=== PATIENT | female | born 1945 | race Caucasian/White ===

== ENCOUNTER 2019-10-16 07:53 | Day surgery (SDC) | payer OTHER, BC ==
[2019-10-11 11:44] VITALS: BMI 23.0
[2019-10-16] MEDS ORDERED: LIDOCAINE HCL 2% (50ML VIAL) INF ONE (08:13)
[2019-10-16] MEDS ORDERED: PROPOFOL 20 ML ONE (08:28)
[2019-10-16] MEDS ORDERED: MIDAZOLAM HCL 2 MG/2 ML SINGLE DOSE VIAL ONE (08:29)
[2019-10-16] MEDS ORDERED: ONDANSETRON 4 MG/2 ML VIAL ONE (09:02)
[2019-10-16] MEDS ORDERED: DEXAMETHASONE SOD PHOSPHATE 4 MG/1 ML VIAL ONE (09:02)
[2019-10-16] MEDS ORDERED: KETOROLAC TROMETHAMINE 30 MG/1 ML VIAL ONE (09:22)
--- NOTE | 2019-10-16 10:14 | OP ---
DATE OF OPERATION: 10/16/2019 PREOPERATIVE DIAGNOSIS: Right carpal tunnel syndrome. POSTOPERATIVE DIAGNOSIS: Right carpal tunnel syndrome. OPERATIVE PROCEDURE: Right carpal tunnel release. ANESTHESIA: Local with sedation. COMPLICATIONS: None. ESTIMATED BLOOD LOSS: Minimal. INDICATION FOR PROCEDURE: The patient is a 74-year-old female with the above finding, indicated for operative treatment. Risks, benefits, and alternatives were discussed with the patient at length. Proper informed consent was obtained. DESCRIPTION OF PROCEDURE: After preoperative identification and patient and correct operative site, patient brought to the operating room and placed on the table with all prominences well padded. Sedation was given by the anesthesiologist. Local anesthesia was given with 2% lidocaine. Right upper extremity was prepped and draped in sterile fashion. A well-padded tourniquet was placed over the sterile prep. Esmarch bandage used to exsanguinate right upper extremity. Tourniquet was inflated to 250 mmHg. Longitudinal incision was made in the proximal aspect of the palm. Incision was taken sharply through skin and with blunt and sharp dissection through the subcutaneous tissues. Palmar fascia was divided longitudinally. Transverse carpal ligament was divided longitudinally, along with the distal 4 cm of the antebrachial fascia under direct visualization with loupe magnification. This provided complete release of the median nerve at the wrist. Wound was repaired with 5-0 fast-absorbing plain gut suture. Sterile dressings were applied. Patient was brought to the recovery room in stable condition. She tolerated the procedure well. NANI URBINA M.D. [id number]
[2019-10-16 10:21] VITALS: BP 144/69; PULSE 62; TEMP 98.1
== END 2019-10-16 10:20 | disposition home or self-care (01) ==
LOC: FASU 07:53 → EDBD 09:30 → FASU 10:20
PROVIDERS: ATTEND Orthopaedic Surgery Hand Surgery
PROC: 01N50ZZ Release Median Nerve, Open Approach (ICD-10-PCS; principal; 2019-10-16 09:13)
DX: G56.01 Carpal tunnel syndrome, right upper limb (principal)